=== PATIENT | male | born 1980 | race Caucasian/White ===

== ENCOUNTER 2018-06-14 15:35 | Emergency (ER) | payer OTHER ==
[2018-06-14 16:42] LABS: APPEARANCE,URINE Clear (CLEAR); BILIRUBIN,URINE Negative (NEGATIVE); COLOR,URINE Yellow (YELLOW); GLUCOSE, URINE (UA) Negative (NEGATIVE); KETONES,URINE Negative (NEGATIVE); LEUKOCYTE ESTERASE ,URINE Negative (NEGATIVE); NITRATE,URINE Negative (NEGATIVE); OCCULT BLOOD,URINE Negative (NEGATIVE); PROTEIN,URINE Negative (NEGATIVE); UROBILINOGEN,URINE 0.2 mg/dL (0.2-1.0)
[2018-06-14] MEDS ORDERED: MAG HYDROX/AL HYDROX/SIMETH ES 30 ML SUSP UDCUP ONE (17:28)
[2018-06-14 17:48] LABS: BASOPHILS % (AUTO) 0.4 % (0.0-5.0); EOSINOPHILS % (AUTO) 0.5 % (0.0-8.0); HEMATOCRIT 43.6 % (42-54); LYMPHOCYTES % (AUTO) 19.3 % (21.0-51.0); MEAN CORPUSCULAR HEMOGLOBIN 29.4 pg (27.0-33.0); MEAN CORPUSCULAR HGB CONC 33.5 g/dL (32.0-36.0); MEAN CORPUSCULAR VOLUME 87.8 fL (79-99); MONOCYTES % (AUTO) 4.6 % (3.0-13.0); NEUTROPHILS % (AUTO) 75.2 % (40.0-77.0); PLATELET COUNT (AUTO) 231 K/uL (130-400); RED BLOOD CELL COUNT(AUTO) 4.97 MIL/uL (4.50-6.20); RED CELL DISTRIBUTION WIDTH 13.3 % (11.0-15.5); WHITE BLOOD COUNT (AUTO) 11.9 K/uL (4.8-10.8)
[2018-06-14 17:56] LABS: CREATININE 1.2 mg/dL (0.5-1.5)
[2018-06-14 18:01] LABS: ALBUMIN 4.2 g/dL (3.5-5.0); BILIRUBIN,TOTAL 0.3 mg/dL (0.2-1.0); TOTAL PROTEIN, SERUM 7.6 g/dL (6.0-8.3)
== END 2018-06-14 18:35 | disposition home or self-care (01) ==
LOC: EDH 15:35
DX: K29.70 Gastritis, unspecified, without bleeding (principal); F12.10 Cannabis abuse, uncomplicated; F15.10 Other stimulant abuse, uncomplicated
CPT/HCPCS: 36415; 80053; 81003; 83690; 85025